=== PATIENT | male | born 1935 | race Hispanic/Latino ===

== ENCOUNTER 2024-07-14 09:20 | Emergency (ER) | payer OTHER ==
[~2024-07-14] VITALS: Ht 154.9 cm; Wt 49.9 kg
[2024-07-14 09:50] VITALS: TEMP 98.1
[2024-07-14] MEDS ORDERED: TRANEXAMIC ACID 1,000 MG/10 ML ML IV STA (10:15)
[2024-07-14] MEDS ORDERED: PHYTONADIONE 10 MG/ML AMP IV ONE (10:30)
[2024-07-14 10:31] LABS: BASOPHILS % 0.1 % (0.0-1.0); EOSINOPHILS % 0.5 % (0.0-6.0); HEMATOCRIT 34.7 % (38.2-49.6); HEMOGLOBIN 11.9 g/dL (14.0-18.0); LYMPHOCYTES # (AUTO) 2.1 (1.0-3.2); LYMPHOCYTES % 23.8 % (18.0-39.1); MEAN CORPUSCULAR HEMOGLOBIN 32.9 pg (28-32); MEAN CORPUSCULAR HGB CONC 34.3 g/dL (31-35); MEAN CORPUSCULAR VOLUME 95.9 fL (81-99); MONOCYTES # (AUTO) 0.8 (0.2-0.8); MONOCYTES % 9.1 % (4.4-11.3); NEUTROPHILS # (AUTO) 5.9 (2.1-6.9); PLATELET COUNT 266 x10e3/uL (140-360); RED BLOOD COUNT 3.62 x10e6/uL (4.3-5.7); RED CELL DISTRIBUTION WIDTH 12.9 % (11.7-14.4); WHITE BLOOD COUNT 8.86 x10e3/uL (4.8-10.8)
[2024-07-14] MEDS ORDERED: TRANEXAMIC ACID 1,000 MG in SODIUM CHLORIDE 0.9% 100 ML IV ONE (11:00)
[2024-07-14 11:03] LABS: ALBUMIN 3.2 g/dL (3.5-5.0); ALBUMIN/GLOBULIN RATIO 1.2 (0.8-2.0); BILIRUBIN,TOTAL 0.3 mg/dL (0.2-1.2); CALCIUM 8.7 mg/dL (8.4-10.2); CREATININE, SERUM 1.27 mg/dL (0.72-1.25); TOTAL PROTEIN 5.8 g/dL (6.5-8.1)
[2024-07-14] MEDS: PHYTONADIONE 10MG/ML INJ 10 MG in Sodium Chloride 0.9% 50ML 50 ML IV ONE (11:27)
[2024-07-14 11:33] LABS: PARTIAL THROMBOPLASTIN TIME 131.4 seconds (23.8-35.5); PROTHROMBIN TIME > 120.0 seconds (11.9-14.5)
[2024-07-14 11:37] VITALS: PULSE 68; RESP 18; O2SAT 100
== END 2024-07-14 12:02 | disposition other institution (70) ==
LOC: ER 09:30
DX: R04.2 Hemoptysis (principal); I10 Essential (primary) hypertension; I48.91 Unspecified atrial fibrillation; E78.5 Hyperlipidemia, unspecified; Z85.01 Personal history of malignant neoplasm of esophagus
CPT/HCPCS: 36415; 80053; 85025; 85610; 85730; 86850; 86900; 99284; J3430